=== PATIENT | male | born 1995 | race African-American/Black ===

== ENCOUNTER 2017-02-23 23:35 | Emergency (ER) | payer BC ==
[2017-02-24] MEDS ORDERED: ACETAMINOPHEN 500 MG TABLET (FP) PO ONE ×2 (00:19→01:34)
[2017-02-24 00:20] VITALS: BP 150/82; PULSE 100; BMI 29.2
[2017-02-24] MEDS ORDERED: PENICILLIN V POTASSIUM 500 MG TABLET PO ONE (00:20)
[2017-02-24] MEDS ORDERED: IBUPROFEN 400 MG TABLET (FP) PO ONE ×2 (00:21→00:28)
--- NOTE | 2017-02-24 00:25 | PDOC ---
History of Present Illness - General History Source: Patient Exam Limitations: No Limitations - History of Present Illness Initial Comments: 02/24/17 00:49 The patient is a 22 year old male with no significant PMH who presents to the emergency department with a sore throat and fever (T. max 101F) beginning approximately 3 days ago. The patient reports that it has been difficult and painful to swallow. The patient denies chest pain, shortness of breath, headache and dizziness. Denies chills, nausea, vomit, diarrhea and constipation. Denies dysuria, frequency, urgency and hematuria. Allergies: NKA Past surgical history: None reported. Social history: No reported cigarette, alcohol, or drug use. PCP: None reported. <Manny Tejada - Last Filed: 02/24/17 00:49> - General History Source: Patient <KitaJose - Last Filed: 02/24/17 02:21> - General Chief Complaint: Sore Throat Stated Complaint: JAW PAIN Time Seen by Provider: 02/24/17 00:10 Past History <Manny Tejada - Last Filed: 02/24/17 00:49> - Suicide/Smoking/Psychosocial Hx Smoking History: Never smoked Have you smoked in the past 12 months: No Information on smoking cessation initiated: No Hx Alcohol Use: No Drug/Substance Use Hx: No <Jose East - Last Filed: 02/24/17 02:21> - Past Medical History Allergies/Adverse Reactions: Allergies Allergy/AdvReac Type Severity Reaction Status Date / Time No Known Allergies Allergy Verified 02/24/17 00:03 Home Medications: Ambulatory Orders Acetaminophen [Tylenol] 975 mg PO QID #90 tablet 02/24/17 Ibuprofen 800 mg PO TID #30 tablet 02/24/17 Penicillin V Potassium [Pen Vee K -] 500 mg PO TID #21 tablet 02/24/17 Review of Systems - Review of Systems Able to Perform ROS?: Yes Comments:: 02/24/17 00:50 CONSTITUTIONAL: (+) Fever (T. max 101F) Absent: chills, diaphoresis, generalized weakness, malaise, loss of appetite HEENT: (+) Sore throat. (+) Difficulty swallowing. (+) Throat pain. Absent: rhinorrhea, nasal congestion,mouth swelling, ear pain, eye pain, visual changes CARDIOVASCULAR: Absent: chest pain, syncope, palpitations, irregular heart rate, lightheadedness , peripheral edema RESPIRATORY: Absent: cough, shortness of breath, dyspnea with exertion, orthopnea, wheezing, stridor, hemoptysis GASTROINTESTINAL: Absent: abdominal pain, abdominal distension, nausea, vomiting, diarrhea, constipation, melena, hematochezia GENITOURINARY: Absent: dysuria, frequency, urgency, hesitancy, hematuria, flank pain, genital pain MUSCULOSKELETAL: Absent: myalgia, arthralgia, joint swelling SKIN: Absent: rash, itching, pallor HEMATOLOGIC/IMMUNOLOGIC: Absent: easy bleeding, easy bruising, lymphadenopathy, frequent infections ENDOCRINE: Absent: unexplained weight gain, unexplained weight loss, heat intolerance, cold intolerance NEUROLOGIC: Absent: headache, focal weakness or paresthesias, dizziness, unsteady gait, seizure, mental status changes, bladder or bowel incontinence PSYCHIATRIC: Absent: anxiety, depression, suicidal or homicidal ideation, hallucinations. <Manny Tejada - Last Filed: 02/24/17 00:49> *Physical Exam - Vital Signs Last Vital Signs Temp Pulse Resp BP Pulse Ox 101.9 F H 100 H 14 150/82 99 02/24/17 00:04 02/24/17 00:04 02/24/17 00:04 02/24/17 00:04 02/24/17 00:04 - Physical Exam Comments: 02/24/17 00:50 GENERAL: Well developed, well nourished. Awake and alert. No acute distress. HEENT: (+) Slight trismus. Normocephalic, atraumatic. PERRLA, EOMI. No conjunctival pallor. Sclera are non- icteric. Moist mucous membranes. Oropharynx is clear. NECK: Supple. Full ROM. No JVD. Carotid pulses 2+ and symmetric, without bruits. No thyromegaly. No lymphadenopathy. CARDIOVASCULAR: Regular rate and rhythm. No murmurs, rubs, or gallops. Distal pulses are 2+ and symmetric. PULMONARY: No evidence of respiratory distress. Lungs clear to auscultation bilaterally. No wheezing, rales or rhonchi. ABDOMINAL: Soft. Non-tender. Non-distended. No rebound or guarding. No organomegaly. Normoactive bowel sounds. MUSCULOSKELETAL Normal range of motion at all joints. No bony deformities or tenderness. No CVA tenderness. EXTREMITIES: No cyanosis. No clubbing. No edema. No calf tenderness. SKIN: Warm and dry. Normal capillary refill. No rashes. No jaundice. NEUROLOGICAL: Alert, awake, appropriate. Cranial nerves 2-12 intact. No deficits to light touch and temperature in face, upper extremities and lower extremities. No motor deficits in the in face, upper extremities and lower extremities. Normoreflexic in the upper and lower extremities. Normal speech. Toes are downgoing bilaterally. Gait is normal without ataxia. PSYCHIATRIC: Cooperative. Good eye contact. Appropriate mood and affect. <Manny Tejada - Last Filed: 02/24/17 00:49> - Vital Signs Last Vital Signs Temp Pulse Resp BP Pulse Ox 101.9 F H 100 H 14 150/82 99 02/24/17 00:04 02/24/17 00:04 02/24/17 00:04 02/24/17 00:04 02/24/17 00:04 <Jose East - Last Filed: 02/24/17 02:21> ED Treatment Course - ADDITIONAL ORDERS Additional order review: 02/24/17 00:01 Group A Strep Rapid Antigen - Final Throat - Medications Given in the ED: ED Medications Discontinued Medications Generic Name Dose Route Start Last Admin Trade Name Jamaal PRN Reason Stop Dose Admin Acetaminophen 1,000 mg 02/24/17 00:19 02/24/17 00:32 Tylenol - PO 02/24/17 00:20 Not Given ONCE ONE Ibuprofen 800 mg 02/24/17 00:21 02/24/17 00:31 Motrin - PO 02/24/17 00:22 800 mg ONCE ONE Administration <Manny Tejada - Last Filed: 02/24/17 00:49> Medical Decision Making - Medical Decision Making 02/24/17 00:27 Dr. East: The scribe's documentation has been prepared under my direction and personally reviewed by me in its entirery. I confirm that the note above accurately reflects all work, treatment, procedures, and medical decision making performed by me. <Jose East - Last Filed: 02/24/17 02:21> *DC/Admit/Observation/Transfer - Attestations Scribe Attestion: 02/24/17 00:50 Documentation prepared by Manny Tejada, acting as medical aide for Jose East DO. <Manny Tejada - Last Filed: 02/24/17 00:49> - Discharge Dispostion Admit: No <Jose East - Last Filed: 02/24/17 02:21> Diagnosis at time of Disposition: Pharyngitis Qualifiers: Pharyngitis/tonsillitis etiology: unspecified etiology Qualified Code(s): J02.9 - Acute pharyngitis, unspecified - Discharge Dispostion Disposition: HOME Condition at time of disposition: Stable - Prescriptions Prescriptions: Ibuprofen 800 mg PO TID #30 tablet Penicillin V Potassium [Pen Vee K -] 500 mg PO TID #21 tablet Acetaminophen [Tylenol] 975 mg PO QID #90 tablet - Referrals Referrals: Mathieu Cheung MD [Staff Physician] - Sanam Pratt MD [Staff Physician] - - Patient Instructions Printed Discharge Instructions: DI for Pharyngitis/Tonsillopharyngitis -- Adult - Post Discharge Activity Forms/Work/School Notes: Back to Work
[2017-02-24 01:35] VITALS: TEMP 100.7
[2017-02-24] MEDS ORDERED: ACETAMINOPHEN 325 MG TABLET (FP) ONE (01:35)
== END 2017-02-24 03:03 | disposition home or self-care (01) ==
LOC: JER 23:35
DX: J02.9 Acute pharyngitis, unspecified (principal)
CPT/HCPCS: 87070; 87430; 99282-25